=== PATIENT | male | born 1945 | race Caucasian/White ===

== ENCOUNTER → 2018-07-08 | Outpatient (REF) | payer MEDICARE, OTHER ==
[2018-07-11 00:07] LABS: Lyme Disease IgG/IgM Antibodie <0.91 ISR (0.00-0.90); Lyme Disease IgM Ab Quantitati <0.80 index (0.00-0.79)
== END ==
LOC: M LABDRAW1 15:31
DX: M17.11 Unilateral primary osteoarthritis, right knee (principal)
CPT/HCPCS: 36415

== ENCOUNTER → 2019-04-29 | Outpatient (CLI) | payer MEDICARE, OTHER ==
[2019-04-29 08:46] LABS: HEMATOCRIT 43.2 % (42.0-52.0); HEMOGLOBIN 14.6 g/dl (13.5-17.5); MEAN CORPUSCULAR HEMOGLOBIN 32.1 pg (27.0-33.0); MEAN CORPUSCULAR HGB CONC 33.8 g/dl (32.0-36.5); MEAN CORPUSCULAR VOLUME 94.9 fl (80.0-96.0); PLATELET COUNT, AUTOMATED 220 10^3/uL (150-450); RED BLOOD COUNT 4.55 10^6/uL (4.30-6.10); WHITE BLOOD COUNT 9.4 10^3/uL (4.0-10.0)
[2019-04-29 09:07] LABS: ERYTHROCYTE SEDIMENTATION RATE 6 mm/hr (0-20)
[2019-04-29 09:09] LABS: APPEARANCE, URINE CLEAR (CLEAR); BACTERIA, URINE AUTO NEGATIVE (NEGATIVE); BILIRUBIN, URINE AUTO NEGATIVE (NEGATIVE); BLOOD, URINE BLOOD NEGATIVE (NEGATIVE); COLOR, URINE YELLOW (YELLOW); GLUCOSE, URINE (UA) AUTO NEGATIVE (NEGATIVE); KETONE, URINE AUTO NEGATIVE (NEGATIVE); LEUKOCYTE ESTERASE, URINE AUTO NEGATIVE (NEGATIVE); MUCUS, URINE SMALL (NEGATIVE); NITRITE, URINE AUTO NEGATIVE (NEGATIVE); PROTEIN, URINE AUTO NEGATIVE (NEGATIVE); RBC, URINE AUTO 4 /HPF (0-3); SQUAMOUS EPITHELIAL CELL UR AU 0 /HPF (0-6); UROBILINOGEN, URINE AUTO 0.2 mg/dL (0.0-2.0); WBC, URINE AUTO 0 /HPF (0-3)
[2019-04-29 09:12] LABS: ALBUMIN 3.6 GM/DL (3.2-5.2); ALT/SGPT 25 U/L (12-78); BILIRUBIN,TOTAL 0.4 MG/DL (0.2-1.0); BLOOD UREA NITROGEN 30 MG/DL (7-18); CALCIUM LEVEL 9.2 MG/DL (8.8-10.2); CARBON DIOXIDE LEVEL 25 MEQ/L (21-32); CHLORIDE LEVEL 107 MEQ/L (98-107); CREATININE FOR GFR 1.21 MG/DL (0.70-1.30); GLOMERULAR FILTRATION RATE > 60.0 (>42); GLUCOSE, FASTING 110 MG/DL (70-100); POTASSIUM SERUM 4.2 MEQ/L (3.5-5.1); SODIUM LEVEL 140 MEQ/L (136-145); TOTAL PROTEIN 6.9 GM/DL (6.4-8.2)
--- NOTE | 2019-04-29 09:12 | REP ---
Clinical: Preoperative assessment . Comparison: 07/24/2011 . Technique: PA and lateral. Findings: The cardiac silhouette is normal. Tortuous ectatic thoracic aorta is again identified and aneurysmal dilatation cannot definitively be excluded. The lung campbell are clear and without acute consolidation, effusion, or pneumothorax. The skeletal structures are intact and normal. Impression: 1. Tortuous ectatic thoracic aorta. Aneurysm cannot be excluded. 2. Lung campbell are clear. Electronically Signed by Dom Hooker MD 04/29/2019 09:03 A
[2019-04-29 09:28] LABS: INR 1.08; PROTHROMBIN TIME 13.8 SECONDS (11.8-14.0)
--- NOTE | 2019-04-30 07:19 | ECGEPIP ---
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
== END ==
LOC: M LAB 08:05
PROVIDERS: ATTEND Orthopaedic Surgery
DX: Z01.818 Encounter for other preprocedural examination (principal); M16.11 Unilateral primary osteoarthritis, right hip; I77.819 Aortic ectasia, unspecified site; K92.9 Disease of digestive system, unspecified

== ENCOUNTER 2019-06-18 09:59 | Inpatient (IN) | payer MEDICARE, OTHER ==
[~2019-06-18] VITALS: Ht 172.7 cm; Wt 74.9 kg
[2019-06-18] VITALS (8 sets, daily range): BP systolic 110–148; BP diastolic 57–93
[~2019-06-18 09:59] MED LIST: AMLO5TAB6 PO; ASPI-255 PO; ASPI81TA85 PO; DICL75TA PO; ESOM0.1C PO; GABA-843 PO; LIDOCAINE 1% MDV 20ML VIAL SQ PRN; LR 1,000 ML IV ONE; OMEP40CA2 PO; PANT20TA2 PO; PLAV1TAB2 PO; PROS5TAB PO; VALS1TAB66 PO
[2019-06-18] MEDS ORDERED: PROPOFOL 200 MG/20 ML VIAL As Ordered ONE (11:37)
[2019-06-18] MEDS ORDERED: SUGAMMADEX SODIUM 500 MG/5 ML VIAL (BRIDION) As Ordered ONE (11:37)
[2019-06-18] MEDS ORDERED: HEPARIN SOD (PORCINE) 5000 UNITS/ML VIAL As Ordered ONE ×2 (11:37→12:48)
[2019-06-18] MEDS ORDERED: ONDANSETRON 4MG/2ML VIAL (J2405) As Ordered ONE (11:37)
[2019-06-18] MEDS ORDERED: LIDOCAINE 2% INJ 100 MG/5 ML SDV (FOR ANES.) As Ordered ONE (11:37)
[2019-06-18] MEDS ORDERED: ROCURONIUM BROMIDE 50 MG/5 ML VIAL As Ordered ONE (11:37)
[2019-06-18] MEDS ORDERED: dexameTHASONE 4 MG/ML 1ML VIAL (J1100) As Ordered ONE (11:37)
[2019-06-18] MEDS ORDERED: fentaNYL 250 MCG/5 ML INJECTION (J3010) As Ordered ONE (11:38)
[2019-06-18] MEDS ORDERED: MIDAZOLAM INJ 2 MG/2 ML VIAL (J2250) As Ordered ONE (11:39)
--- NOTE | 2019-06-18 12:19 | HPEPDOC ---
[facility] Medical History & Physical Date of Admission Jun 18, 2019 Date of Service: Jun 18, 2019 History and Physical Vascular Surgery Dr Cisneros HPI: 74year oldM with Carotid stenosis scheduled for elective Lt CEA as per Dr Cisneros 06/18/19. Please also refer to Pre operative clearance as per Dr Taylor placed on the chart. No acute medical complaints today. Denies any fevers, chills, weakness, fatigue, Headache, Chest Pain, Shortness of breath, cough, palpitations, abdominal pain, N/V/D or changes in bowel or bladder habits. PMHx: HTN GERD BPH Carotis vascular disease tobacco use chronic hip pain. PSHX: tonsillectomy Rt arm surgery Rotator cuff repair Lt foot neuroma Lt hernia repair Rt knee meniscus repair. SOCHX: Tobacco use: 1/2 ppd ETOH: denies FAMHX: DM ROS: As noted in HPI, otherwise 11pt ROS of systems reviewed and unremarkable. PE: GEN: 74yoM, appears stated age. Alert and oriented x 3. HEENT: Normocephalic, atraumatic. Moist mucous membranes. CHEST: Regular rate and rhythm, +S1, +S2 LUNGS: Clear to auscultation bilaterally. No wheezes, rales, or rhonchi. ABD: Round, soft, non-tender, non-distended. EXT: No lower extremity edema appreciated. SKIN: [place], dry, warm. No rashes. NEURO: Alert and oriented x 3. Cranial nerves III-XII are intact. No focal deficits appreciated. A&P: 1. Carotid vascular disease/Lt CEA planned as per Dr Cisneros 06/18/19. Pt on ASA/Plavix as outpt. 2. HTN. Valsartan on hold for now. BP 133/60. 3. GERD. Protonix. 4. BPH. Proscar. 5. Chronic hip pain. gabapentin. Vital Signs Vital Signs Date Time Temp Pulse Resp B/P (MAP) Pulse Ox O2 Delivery O2 Flow Rate FiO2 06/18/19 10:37 96.7 68 20 133/60 (84) 97 Laboratory Data Labs 24H Item Value Date Time White Blood Count 9.4 10^3/uL 04/29/19 0822 Red Blood Count 4.55 10^6/uL 04/29/19 0822 Hemoglobin 14.6 g/dl 7/2/19 0822 Hematocrit 43.2 % 04/29/1922 Mean Corpuscular Volume 94.9 fl 04/29/19 08 Mean Corpuscular Hemoglobin 32.1 pg 04/29/19821 Mean Corpuscular Hemoglobin Concent 33.8 g/dl 04/29/19 08 Red Cell Distribution Width 13.3 % 04/29/19 08 Platelet Count 220 10^3/uL 04/29/19 08 Sodium Level 140 MEQ/L 04/29/19 0822 Potassium Level 4.2 MEQ/L 04/29/19 0822 Chloride Level 107 MEQ/L 04/29/19 0822 Carbon Dioxide Level 25 MEQ/L 04/29/19 08 Anion Gap 8 MEQ/L 04/29/19 08 Blood Urea Nitrogen 30 MG/DL H 04/29/19 0822 Creatinine 1.21 MG/DL 04/29/19 08 Glomerular Filtration Rate > 60.0 04/29/19 08 Fasting Glucose 110 MG/DL H 04/29/19 0822 Prothrombin Time 13.8 SECONDS 04/29/19 0822 Prothromb Time International Ratio 1.08 04/29/19 08 Home Medications Scheduled Amlodipine Besylate (Amlodipine Besylate) 5 Mg Tablet, 5 MG PO DAILY Aspirin (Aspir 81) 81 Mg Tablet.dr, 81 MG PO DAILY Clopidogrel Bisulfate (Plavix) 75 Mg Tablet, 75 MG PO DAILY Diclofenac Sodium (Diclofenac Sodium) 75 Mg Tablet.dr, 75 MG PO BID Finasteride (Proscar) 5 Mg Tablet, 5 MG PO QAM Gabapentin (Gabapentin) 300 Mg Capsule, 300 MG PO Q8H Pantoprazole Sodium (Pantoprazole Sodium) 20 Mg Tablet.dr, 20 MG PO DAILY Valsartan (Valsartan) 80 Mg Tablet, 80 MG PO DAILY Allergies Coded Allergies: No Known Allergies (Unverified , 06/18/19) A-FIB/CHADSVASC A-FIB History Current/History of A-Fib/PAF?: No Attending Note Attending Note VASCULAR SURGICAL ATTENDING NOTE: Dr. Karolyn Cisneros M.D. The patient was seen on 06/18/19 at 11:15. ASSESSMENT: Patient is a 74-year-old male with a history of TIAs and severe right hip degenerative joint disease who was in the process of being set up to undergo a right hip replacement when he had a TIA and was found to have a high- grade stenosis in his left internal carotid artery. The patient also has an intracerebral aneurysm. Patient was evaluated and the recommendation was to undergo a left carotid endarterectomy with patch angioplasty with a Xenosure biologic patch and usage of a shunt. Patient will also require close monitoring of his intracerebral aneurysm. PLAN: Patient will undergo a left carotid artery endarterectomy with p patch angioplasty with Xenosure biologic patch and shunt usage. The procedure was explained and described to the patient and his family in detail including drawing of pictures demonstrating the pertinent anatomy and parts of the procedure. Risks benefits and alternative treatment options were discussed with the patient. Benefits included but were not limited to removal of carotid artery plaque and reduction in risk of cerebrovascular accident. Alternative treatment options included but were not limited to no intervention with continued conservative management. Risks included but were not limited to infection, bleeding, renal failure requiring hemodialysis, possible need for further open surgical intervention, hematoma formation requiring evacuation, scarring, bruising, possible need for transfusion of blood products, complicatio n reaction from the prepping and draping materials, hypoglossal nerve injury or neurapraxia, vagus nerve injury or neurapraxia, glossopharyngeal nerve injury or neurapraxia, marginal mandibular nerve injury or neurapraxia, recurrent laryngeal nerve injury or neurapraxia, cerebrovascular accident, myocardial infarction, pulmonary embolus, deep venous thrombosis, loss of limb, loss of life, poor satisfaction and poor outcome. Risks of not performing the procedure included but were not limited to cerebrovascular accident and . All of the patient's questions were answered. Patient voices understanding of these risks, benefits and alternative treatment options. Patient voices acceptance of these associated risks, benefits and alternative treatment options and consents to proceed with carotid endarterectomy. No promises or guarantees were made to the patient regarding the results or outcome of the procedure. The patient's , sister and [id number] were also present and all of their questions were answ ered. Patient signed the consent in the preoperative holding area with his , sister and [id number] present. Jeanette Greer was the attending vascular surgeon for this patient encounter. The patient was seen, examined, interviewed and evaluated independently by Dr. Shawna Cisneros M.D. was fully available during the consultation evaluation. All aspects of the patient interview, examination, medical decision making process, and medical care plan development were reviewed and approved by Dr. Shawna Cisneros M.D. is aware and concurs with the plan as stated in the body of this note and will attest to such by his/her cosignature. Coco Marcial Jun 18, 2019 12:19 Arnold Cisneros MD Jun 18, 2019 12:54
[2019-06-18] MEDS ORDERED: THROMBIN SOLN 20,000 UNITS KIT As Ordered ONE (12:47)
[2019-06-18] MEDS ORDERED: BUPIVACAINE HCL 0.5% 30 ML VIAL As Ordered ONE (12:48)
[2019-06-18] MEDS ORDERED: LIDOCAINE 1% SDV INJ 30 ML VIAL As Ordered ONE (12:48)
[2019-06-18] MEDS ORDERED: ceFAZolin 2 GM/D5W 50 ML IV BAG (J0690 PER 500MG) As Ordered ONE (13:34)
[2019-06-18] MEDS ORDERED: ACETAMINOPHEN TAB 650MG DOSE (2X325MG) PO PRN (15:30)
[2019-06-18] MEDS ORDERED: MORPHINE 4 MG/ML 1ML VIAL/SYRINGE (J2270) IV PRN (15:30)
[2019-06-18] MEDS ORDERED: MOM 30ML SUSPENSION UDC PO PRN (15:30)
[2019-06-18] MEDS ORDERED: BISACODYL 10 MG SUPP PR PRN (15:30)
[2019-06-18] MEDS ORDERED: NORCO, ANEXSIA 5/325MG TABLET (HYDROcodone/ACETAMINOPHEN) As Ordered ONE (15:39)
[2019-06-18] MEDS: NORCO, ANEXSIA 5/325MG TABLET (HYDROcodone/ACETAMINOPHEN) PO PRN ×2 (15:40→16:15)
[2019-06-18] MEDS ORDERED: fentaNYL 100 MCG/2 ML INJECTION (J3010) IV PRN (15:45)
[2019-06-18] MEDS ORDERED: LR 1,000 ML IV SCH (15:45)
[2019-06-18] MEDS ORDERED: ONDANSETRON 4MG/2ML VIAL (J2405) IV PRN (15:45)
[2019-06-18] MEDS: GABAPENTIN 300 MG CAP PO SCH ×2 (17:54→22:08)
--- NOTE | 2019-06-18 19:19 | ROOPDOC ---
[facility] Report Of Operation Report of Operation DATE OF PROCEDURE: 06/18/2019 PREOPERATIVE DIAGNOSES: Left carotid artery stenosis, TIA, intracerebral aneurysm. POSTOPERATIVE DIAGNOSES: Left carotid artery stenosis, TIA, intracerebral aneurysm. PROCEDURE: Left carotid endarterectomy with usage of a shunt and patch angioplasty with Xenosure biologic patch. SURGEON: Dr. Karolyn Cisneros M.D. NEIGHBORHOOD WORKER: None INDICATION: Patient is a 74-year-old male with multiple episodes of TIA who was evaluated and found to have greater than 95% stenosis in his left internal carotid artery. Patient also has a history of an intracerebral aneurysm. Patient was evaluated due to being symptomatic recommendation was to undergo a left carotid endarterectomy with patch angioplasty with Xenosure biologic patch and usage of a shunt. The procedure was explained and described to the patient and his daughter in detail including drawing of pictures demonstrating the pertinent anatomy and parts of the procedure. Risks benefits and alternative treatment options were discussed with the patient. Benefits included but were not limited to removal of carotid artery plaque and reduction in risk of cerebrovascular accident. Alternative treatment options included but were not limited to no intervention with continued conservative management. Risks included but were not limited to infection, bleeding, renal failure requiring hemodialysis, possible need for further open surgical intervention, hematoma formation requiring evacuation, scarring, bruising, possible need for transfusion of blood products, complication reaction from the prepping and draping materials, hypoglossal nerve injury or neurapraxia, vagus nerve injury or neurapraxia, glossopharyngeal nerve injury or neurapraxia, marginal mandibular nerve injury or neurapraxia, recurrent laryngeal nerve injury or neurapraxia, cerebrovascular accident, myocardial infarction, pulmonary embolus, deep venous thrombosis, loss of limb, loss of life, poor satisfaction and poor outcome. Risks of not performing the procedure included but were not limited to cerebrovascular accident and . All of the patient's questions were answered. Patient voices understanding of these risks, benefits and alternative treatment options. Patient voices acceptance of these associated risks, benefits and alternative treatment options and consents to proceed with carotid endarterectomy. No promises or guarantees were made to the patient regarding the results or outcome of the procedure. ANESTHESIA: Gen. endotracheal. ESTIMATED BLOOD LOSS: 200 mL. IV FLUIDS: 600 mL. HEPARIN: 7000 units PROTAMINE: 50 mg COMPLICATIONS: None. DRAINS: #10 Marcello-House drain. SPECIMENS: Left carotid plaque PROCEDURE: Patient was taken to the operating room, placed supine on the operating room table and the patient was prepped and draped in a standard surgical fashion. A surgical time out confirming the correct patient, procedure and laterality was then performed by myself and the team members within the operating room. The location of the bifurcation of the common carotid, external carotid and internal carotid arteries was identified using palpation and ultrasound and this was marked on the skin. An incision was then made along the anterior border of the left sternocleidomastoid muscle using a scalpel at the previously marked location of the bifurcation of the common carotid, external carotid and internal carotid arteries. The dissection was carried down through the skin, subcutaneous tissue and platysma using Bovie electrocautery. The sternocleidomastoid muscle was then dissected off of the carotid sheath using both sharp dissection and Bovie electrocautery. The sternocleidomastoid muscle was retracted laterally exposing the carotid sheath. The carotid sheath was then opened exposing the common carotid artery, internal jugular vein and vagus nerve. The internal jugular vein was dissected sharply and retracted laterally. The common carotid artery was then sharply dissected free of surrounding tissue with Metzenbaum scissors and encircled with a vessel loop. The superior thyroid and external carotid arteries were then sharply dissected free and encircled with vessel loops. The patient was given 7000 units of heparin for systemic anti-coagulation after which the internal carotid artery was sharply dissected free after the common carotid artery, external carotid artery and superior thyroid arteries were controlled using the vessel loops. The internal carotid artery was then clamped using a profunda clamp. An arteriotomy was then made in the common carotid artery using an 11 blade scalpel and this was then elongated from the common carotid artery into the internal carotid artery using pot scissors. There was a 95% stenosis at the junction of the common carotid, external carotid and internal carotid arteries. The internal carotid artery was then retrograde flushed with good back bleeding noted after which a shunt was inserted into the internal carotid artery and flushed retrograde with the internal carotid artery portion of the shunt being clamped. The common carotid artery was then antegrade flushed and the shunt was then inserted into the common carotid artery and the common carotid artery portion of the shunt flushed through the side port. Flow was then established through and confirmed through the shunt using Doppler ultrasound evaluation. The endarterectomy of the common and internal carotid arteries was then completed including eversion endarterectomy of the superior thyroid and external carotid artery. The arteriotomy was irrigated with heparinized saline and then closed using Xenosure biologic patch and 6-0 Prolene suture in running continuous fashion. The shunt was removed prior to completing the arteriotomy closure. The internal carotid artery portion of the shunt was removed firstly and the internal carotid artery was retrograde flushed and then clamped with a profunda clamp. The common carotid artery shunt portion was removed and the common carotid artery was flushed antegrade. The superior thyroid and external carotid arteries were retrograde flushed prior to completing the closure of the arteriotomy. The arteriotomy was then flushed with heparinized saline. The arteriotomy closure was completed after which flow was established from the common carotid artery into the superior thyroid artery and external carotid artery while the internal carotid artery remained clamped. Flow was then established into the internal carotid artery. Flow was evaluated with Doppler ultrasound which showed good flow into the internal carotid artery, external carotid artery and superior thyroid arteries. Hemostasis was then obtained using thrombin and Gelfoam. Once hemostasis was obtained a #10 Marcello-House drain was placed in the wound. The platysma was then closed using 2-0 Vicryl suture in interrupted fashion. The skin was then closed using 3-0 Monocryl in a running subcuticular fashion. Steri-Strips and dressings were applied. All instruments sponge and needle counts were correct at the end of the case. There were no complications. Dr. Cisneros was present for and directed the entire case. Patient was transferred to the recovery room awake, alert, extubated and fully neurologically intact with no focal deficits noted. The results of the procedure were explained and described to the patient in the recovery room. The results of the procedure were explained and described to the patient's family in the surgical waiting room postoperatively. All the patient's and his family's questions were answered. Arnold Cisneros MD Jun 18, 2019 19:19
[2019-06-18] MEDS: SENOKOT S TAB PO SCH (21:00)
[2019-06-18] MEDS: DOCUSATE SODIUM 100 MG CAP PO SCH (21:00)
[2019-06-19] VITALS (8 sets, daily range): BP systolic 107–158; BP diastolic 57–78
[2019-06-19] MEDS: GABAPENTIN 300 MG CAP PO SCH (05:57)
[2019-06-19] MEDS: DOCUSATE SODIUM 100 MG CAP PO SCH (08:17)
[2019-06-19] MEDS: SENOKOT S TAB PO SCH (08:18)
[2019-06-19] MEDS ORDERED: PANTOPRAZOLE 20 MG TAB PO SCH (09:00)
[2019-06-19] MEDS ORDERED: VALSARTAN 80 MG TAB (DIOVAN) PO SCH (09:00)
[2019-06-19] MEDS ORDERED: FINASTERIDE 5 MG TAB PO SCH (09:00)
[2019-06-19] MEDS ORDERED: amLODIPine 5 MG TAB PO SCH (09:00)
[2019-06-19] MEDS ORDERED: CLOPIDOGREL 75 MG TAB PO SCH (09:00)
[2019-06-19] MEDS ORDERED: ASPIRIN 81 MG ENTERIC TAB PO SCH (09:00)
--- NOTE | 2019-06-19 11:34 | DS.PDOC ---
Discharge Summary General Date of Admission Jun 18, 2019 at 09:59 Date of Discharge 06/19/19 Discharge Summary PROCEDURES PERFORMED DURING STAY: Left carotid endarterectomy with usage of a shunt and patch angioplasty with Xenosure biologic patch. Dr Cisneros 06/18/19. ADMITTING DIAGNOSES: carotid vascular disease intracerebral aneurysm. HTN GERD BPH Carotis vascular disease tobacco use chronic hip pain. DISCHARGE DIAGNOSES: carotid vascular disease. S/P Lt CEA. intracerebral aneurysm. HTN GERD BPH Carotis vascular disease tobacco use chronic hip pain. COMPLICATIONS/CHIEF COMPLAINT: carotid stenosis. HISTORY OF PRESENT ILLNESS: 74year oldM with Carotid stenosis scheduled for elective Lt CEA as per Dr Cisneros 06/18/19. HOSPITAL COURSE: 74year oldM with Carotid stenosis scheduled for elective Lt CEA as per Dr Cisneros 06/18/19. The pt tolerated the procedure well. Pt is awake this AM. Tolerating PO. Has been OOB. VARINDER drain removed as per Dr Cisneros. Dry dressing and steri strips in place. plan for D/C today after lunch. DISCHARGE MEDICATIONS: Please see below. ALLERGIES: Please see below. PHYSICAL EXAMINATION ON DISCHARGE: VITAL SIGNS: Please see below. GEN: 74yoM. Alert and oriented x 3. HEENT: Normocephalic, atraumatic. Moist mucous membranes. CHEST: Regular rate and rhythm, +S1, +S2. VARINDER drain removed. No bleeding noted. Dry dressing in place. LUNGS: Clear to auscultation bilaterally. ABD: Round, soft, non-tender, non-distended. EXT: No lower extremity edema appreciated. SKIN: [place], dry, warm. No rashes. NEURO: Alert and oriented x 3. No focal deficits appreciated. LABORATORY DATA: Please see below. ACTIVITY: As tolerated. light activity. No heavy lifting. DIET: As tolerated DISPOSITION: D/C home DISCHARGE INSTRUCTIONS: 1. dry dressing daily as needed. 2. no lifting, light activity. 3. FU with Dr Cisneros's office 1 week. ITEMS TO FOLLOWUP ON ON OUTPATIENT: 1. Pt to FU with [facility] [place] re intracerebral aneurysm. Pt states already has appt arranged. DISCHARGE CONDITION: Stable. TIME SPENT ON DISCHARGE: Greater than 30 minutes. Vital Signs/I&Os Vital Signs Date Time Temp Pulse Resp B/P (MAP) Pulse Ox O2 Delivery O2 Flow Rate FiO2 06/19/19 10:18 89 16 111/66 (82) 96 06/19/19 07:38 98.2 06/18/19 16:17 2 I&O- Last 24 Hours up to 6 AM 06/19/19 05:59 Intake Total 2040 ml Output Total 1030 ml Balance 1010 ml Laboratory Data Labs 24H Laboratory Tests 2 06/18/19 13:32: POC pH (Misc Panel) 7.417, POC Base Excess (Misc Panel) 0.0, POC Saturated Percent O2 (Misc) 100H, POC pO2 (Misc Panel) 193.0H, POC pCO2 (Misc Panel) 38.1, POC HCO3 (Misc Panel) 24.6, POC Glucose (Misc Panel) 100, POC Sodium (Misc Panel) 138, POC Potassium (Misc Panel) 4.0, POC Total CO2 (Misc Panel) 26.0, POC Ionized Calcium (Misc Panel) 5.1, POC Hemoglobin (Calculated)(Misc) 11.2L, POC Hematocrit (Misc Panel) 33.0L Discharge Medications Scheduled Amlodipine Besylate (Amlodipine Besylate) 5 Mg Tablet, 5 MG PO DAILY, (Reported) Aspirin (Aspir 81) 81 Mg Tablet.dr, 81 MG PO DAILY, (Reported) Clopidogrel Bisulfate (Plavix) 75 Mg Tablet, 75 MG PO DAILY, (Reported) Finasteride (Proscar) 5 Mg Tablet, 5 MG PO QAM, (Reported) Gabapentin (Gabapentin) 300 Mg Capsule, 300 MG PO Q8H, (Reported) Pantoprazole Sodium (Pantoprazole Sodium) 20 Mg Tablet.dr, 20 MG PO DAILY, (Reported) Valsartan (Valsartan) 80 Mg Tablet, 80 MG PO DAILY, (Reported) Allergies Coded Allergies: No Known Allergies (Unverified , 06/18/19) Coco Marcial Jun 19, 2019 11:34
== END 2019-06-19 13:25 | disposition home or self-care (01) | DRG 39 ==
LOC: M OR 09:59 → M ICU 16:56
PROVIDERS: ADMIT Surgery Vascular Surgery; ATTEND Surgery Vascular Surgery
PROC: 03UJ0KZ Supplement Left Common Carotid Artery with Nonautologous Tissue Substitute, Open Approach (ICD-10-PCS; 2019-06-18)
PROC: 037 Upper Arteries, Dilation (ICD-10-PCS; 2019-06-18)
PROC: 03CL0Z6 (ICD-10-PCS; principal; 2019-06-18 12:00)
DX: I65.22 Occlusion and stenosis of left carotid artery (principal); I10 Essential (primary) hypertension; K21.9 Gastro-esophageal reflux disease without esophagitis; N40.0 Benign prostatic hyperplasia without lower urinary tract symptoms; I67.1 Cerebral aneurysm, nonruptured; F17.200 Nicotine dependence, unspecified, uncomplicated; M25.559 Pain in unspecified hip; Z79.82 Long term (current) use of aspirin; Z79.899 Other long term (current) drug therapy

== ENCOUNTER → 2019-07-02 | Outpatient (CLI) | payer MEDICARE, OTHER ==
[~2019-07-02] MED LIST changes: -LIDOCAINE 1% MDV 20ML VIAL SQ PRN; -LR 1,000 ML IV ONE; -OMEP40CA2 PO; +OMEP40CA97 PO; +PERC5TAB12 PO
--- NOTE | 2019-07-02 10:09 | REP ---
Clinical: Status post recent left endarterectomy. Technique: Garibay scale and color Doppler evaluation using linear high frequency transducer Findings: Two-dimensional garibay scale and color images demonstrate moderate amounts of mixed atheromatous plaquing along the right common carotid artery through the bulb and proximal internal carotid artery as well as along the left common carotid artery and proximal portions of the left internal and external carotid arteries. The patient is known to be status post left endarterectomy and there is a hematoma centered at the level of the carotid bulb and measuring 1.0 x 2.5 cm diameter x 4.8 cm craniocaudal length. Color Doppler interrogation demonstrates arterial wave patterns and normal velocities with elements of spectral broadening. Normal flow direction is appreciated in the bilateral vertebral arteries. RIGHT (cm/s) LEFT (cm/s) ICA peak systolic velocity 63.7 66.5 ICA diastolic velocity 24.3 19.2 ECA peak systolic velocity 104.7 51.0 CCA peak systolic velocity 57.2 67.2 ICA/CCA ratio 1.11 0.99 Impression: 1. The patient is status post left endarterectomy and a presumed postsurgical hematoma is identified adjacent to the left carotid artery described above. 2. Mixed atheromatous plaquing involving the right carotid artery falls within the less than 50% range of narrowing based on set standards. Electronically Signed by Dom Hooker MD 07/02/2019 10:01 A
== END ==
LOC: M RAD 08:15
PROVIDERS: ATTEND Surgery Vascular Surgery
DX: I65.21 Occlusion and stenosis of right carotid artery (principal); I97.638 Postprocedural hematoma of a circulatory system organ or structure following other circulatory system procedure

== ENCOUNTER → 2019-08-08 | Outpatient (CLI) | payer MEDICARE, OTHER ==
[~2019-08-08] MED LIST changes: -PERC5TAB12 PO
[2019-08-08 10:58] LABS: HEMATOCRIT 41.1 % (42.0-52.0); HEMOGLOBIN 13.4 g/dl (13.5-17.5); MEAN CORPUSCULAR HEMOGLOBIN 30.8 pg (27.0-33.0); MEAN CORPUSCULAR HGB CONC 32.6 g/dl (32.0-36.5); MEAN CORPUSCULAR VOLUME 94.5 fl (80.0-96.0); PLATELET COUNT, AUTOMATED 228 10^3/uL (150-450); RED BLOOD COUNT 4.35 10^6/uL (4.30-6.10); WHITE BLOOD COUNT 8.9 10^3/uL (4.0-10.0)
[2019-08-08 11:08] LABS: INR 1.07; PROTHROMBIN TIME 13.6 SECONDS (11.8-14.0)
[2019-08-08 11:17] LABS: ALBUMIN 3.8 GM/DL (3.2-5.2); ALT/SGPT 23 U/L (12-78); BILIRUBIN,TOTAL 0.4 MG/DL (0.2-1.0); BLOOD UREA NITROGEN 33 MG/DL (7-18); CALCIUM LEVEL 9.6 MG/DL (8.8-10.2); CARBON DIOXIDE LEVEL 26 MEQ/L (21-32); CHLORIDE LEVEL 108 MEQ/L (98-107); CREATININE FOR GFR 0.94 MG/DL (0.70-1.30); GLOMERULAR FILTRATION RATE > 60.0 (>42); GLUCOSE, FASTING 91 MG/DL (70-100); POTASSIUM SERUM 4.3 MEQ/L (3.5-5.1); SODIUM LEVEL 140 MEQ/L (136-145); TOTAL PROTEIN 7.5 GM/DL (6.4-8.2)
[2019-08-08 11:22] LABS: ERYTHROCYTE SEDIMENTATION RATE 13 mm/hr (0-20)
--- NOTE | 2019-08-08 12:42 | REP ---
PA and lateral chest: Comparison is 04/29/2019. There is a faintly visible nodular density projected over the right lung inferiorly and over the left lung inferiorly, likely nipple artifacts. The lung campbell otherwise clear. Cardiac size is normal. The chemo and mediastinum are unremarkable except for extreme tortuosity of the thoracic aorta, unchanged. Skeletal structures are unremarkable. Impression: Probable nipple artifacts in the lower lung zones bilaterally. Tortuous descending thoracic aorta. Otherwise, negative PA and lateral chest. Electronically Signed by Jose Luis Key MD 08/08/2019 12:35 P
--- NOTE | 2019-08-09 10:04 | ECGEPIP ---
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
== END ==
LOC: M LAB 10:10
PROVIDERS: ATTEND Orthopaedic Surgery
DX: M16.11 Unilateral primary osteoarthritis, right hip (principal); Z79.899 Other long term (current) drug therapy; Z79.82 Long term (current) use of aspirin

== ENCOUNTER 2019-08-29 05:37 | Inpatient (IN) | payer MEDICARE, OTHER ==
--- NOTE | 2019-08-21 13:41 | HPE ---
DATE OF ADMISSION: 08/29/2019 CHIEF COMPLAINT: Right hip pain. HISTORY OF PRESENT ILLNESS: Mr. Howe is a pleasant 74-year-old male with progressively worsening right hip pain and stiffness. He has failed to improve with conservative treatment. He has elected for surgery for his continued symptoms. He has pain with weightbearing activities and his activities of daily living. X-rays of his hip are notable for advanced osteoarthritis of the right hip joint. He has consented for a right total hip arthroplasty by Dr. Chano Garibay. Medical optimization was performed by Kaleigh Pearce. ALLERGIES: No known allergies. CURRENT MEDICATIONS: - gabapentin 300 mg three times a day - valsartan 80 mg once a day - amlodipine besylate 5 mg at bedtime - Proscar 5 mg at bedtime - diclofenac sodium 75 mg - pantoprazole sodium 40 mg - clopidogrel bisulfate 75 mg - low dose aspirin. PAST MEDICAL HISTORY: Includes: Hypertension. Hyperlipidemia. Gastroesophageal reflux disease. Benign prostatic hypertrophy (BPH). PAST SURGICAL HISTORY: Includes: Left inguinal hernia repair. Right inguinal hernia repair. Tonsillectomy. Right shoulder rotator cuff repair. Neuroma removal left foot. Meniscectomy right knee. Cyst removed from the left shoulder. Calcium deposits removed from his left testicle. SOCIAL HISTORY: This gentleman is retired. Smokes a pack a day. Occasionally drinks alcohol. FAMILY HISTORY: Noncontributory. REVIEW OF SYSTEMS: This patient denies chest pain, heart palpitations, cough, wheezing, difficulty breathing and shortness of breath. He denies abdominal pain, nausea, vomiting, diarrhea or constipation. He denies recent upper respiratory infection or urinary tract infection symptoms. He does complain of persistent pain in the right hip and pain with weightbearing activities in his right hip. PHYSICAL EXAMINATION: GENERAL: He is well-nourished, well-developed in no acute distress, alert male. He ambulates with a significant limp favoring the right lower extremity. He is using a cane. VITAL SIGNS: He is 68 inches tall, weighs 175 pounds with a temperature of 98.9, blood pressure of 135/62, pulse of 81, respirations of 14. NECK: Was supple without adenopathy or jugular venous distension. LUNGS: Were clear to auscultation without rales or wheeze. HEART: Regular rate and rhythm. ABDOMEN: Bowel sounds were present. EXTREMITIES: Examination of the hip revealed intact skin. He had decreased range of motion due to pain and stiffness. The limb is neurovascularly intact. LABORATORY DATA: EKG showed sinus rhythm with first-degree AV block at 63 beats per minute. Chest x-ray showed no acute cardiopulmonary disease processes. ProTime 13.6, INR 1.07, glucose 91, BUN 33, creatinine 0.94, sodium 140, potassium 4.3. CBC showed hemoglobin of 13.4, hematocrit of 41.1, otherwise within normal limits, with a sed rate of 13. IMPRESSION: Symptomatic osteoarthritis of the right hip joint. PLAN: Consented for a right total hip arthroplasty by Dr. Chano Garibay.
[2019-08-29] VITALS (10 sets, daily range): BP systolic 102–148; BP diastolic 55–84; O2SAT 96
[~2019-08-29] VITALS: Ht 172.7 cm; Wt 76.3 kg
[2019-08-29] MEDS ORDERED: ceFAZolin 2 GM/D5W 50 ML IV BAG (J0690 PER 500MG) As Ordered ONE (06:33)
[2019-08-29] MEDS ORDERED: PERCOCET 5MG/325MG TAB PO ONE (07:00)
[2019-08-29] MEDS ORDERED: LR 1,000 ML IV ONE (07:00)
[2019-08-29] MEDS ORDERED: ceFAZolin SOD 2 GM in IV 1 EA IV ONE (07:00)
[2019-08-29] MEDS ORDERED: PREGABALIN 50 MG CAP (LYRICA) PO ONE (07:00)
[2019-08-29] MEDS ORDERED: CelecoXIB 400 MG CAP PO ONE (07:00)
[2019-08-29] MEDS ORDERED: BUPIVACAINE/EPIN 0.25% 30 ML VIAL As Ordered ONE (07:04)
[2019-08-29] MEDS ORDERED: ceFAZolin 1GM INJ (J0690 PER 500MG) As Ordered ONE (07:05)
[2019-08-29] MEDS ORDERED: BUPIVACAINE LIPOSOME/PF 1.3% 20ML VIAL (13.3MG/ML)(EXPAREL)(C9290 PER1MG) As Ordered ONE (07:05)
[2019-08-29] MEDS ORDERED: BUPIVACAINE HCL 0.5% 10 ML VIAL As Ordered ONE (07:05)
[2019-08-29] MEDS ORDERED: TRANEXAMIC ACID 100 MG/ML 10ML VIAL As Ordered ONE (07:05)
[2019-08-29] MEDS ORDERED: EPINEPHrine INJ 1 MG/ML 1ML AMP As Ordered ONE (07:06)
[2019-08-29] MEDS ORDERED: PROPOFOL 200 MG/20 ML VIAL As Ordered ONE (07:18)
[2019-08-29] MEDS ORDERED: fentaNYL 100 MCG/2 ML INJECTION (J3010) As Ordered ONE ×2 (07:18→10:31)
[2019-08-29] MEDS ORDERED: MIDAZOLAM INJ 2 MG/2 ML VIAL (J2250) As Ordered ONE (07:18)
[2019-08-29] MEDS ORDERED: LIDOCAINE 2% INJ 100 MG/5 ML SDV (FOR ANES.) As Ordered ONE (07:18)
[2019-08-29] MEDS ORDERED: ROCURONIUM BROMIDE 50 MG/5 ML VIAL As Ordered ONE (07:39)
[2019-08-29] MEDS ORDERED: ePHEDrine SULFATE 25 MG/5 ML(5MG/ML) SYRINGE As Ordered ONE (07:53)
[2019-08-29] MEDS ORDERED: PHENYLephrine HCL 500 MCG/5 ML (100MCG/ML) SYRINGE (J2370) As Ordered ONE (07:56)
[2019-08-29] MEDS ORDERED: dexameTHASONE 4 MG/ML 1ML VIAL (J1100) As Ordered ONE (08:02)
[2019-08-29] MEDS ORDERED: NEOSTIGMINE 10 MG/10 ML VIAL (J2710) As Ordered ONE (08:17)
[2019-08-29] MEDS ORDERED: ONDANSETRON 4MG/2ML VIAL (J2405) As Ordered ONE (08:17)
[2019-08-29] MEDS ORDERED: MORPHINE 10 MG/ML 1ML VIAL (J2270) As Ordered ONE (08:17)
[2019-08-29] MEDS ORDERED: GLYCOPYRROLATE INJ 0.2 MG/ML 2 ML VIAL As Ordered ONE (08:17)
[2019-08-29] MEDS ORDERED: ACETAMINOPHEN 1000MG 100ML IV BTL (OFIRMEV) (J0131 PER 10MG) As Ordered ONE (08:23)
[2019-08-29] MEDS: fentaNYL 100 MCG/2 ML INJECTION (J3010) IV PRN ×4 (10:34→10:49)
[2019-08-29] MEDS ORDERED: LR 1,000 ML IV SCH ×2 (11:00→11:15)
[2019-08-29] MEDS ORDERED: oxyCODONE 5MG TAB PO PRN ×2 (11:00→11:15)
[2019-08-29] MEDS ORDERED: ONDANSETRON 4MG/2ML VIAL (J2405) IV PRN ×2 (11:00→11:15)
--- NOTE | 2019-08-29 11:14 | REP ---
Clinical: Status post arthroplasty. Technique: AP and cross-table lateral views. Findings: The patient is status post right hip replacement with normal positioning and appearance to the femoral and acetabular components. Overlying postsurgical changes appreciated. Impression: Satisfactory right hip replacement radiographs. Electronically Signed by Dom Hooker MD 08/29/2019 11:05 A
[2019-08-29] MEDS ORDERED: ACETAMINOPHEN TAB 650MG DOSE (2X325MG) PO PRN ×2 (11:15→11:30)
[2019-08-29] MEDS ORDERED: D5W/LR 1,000 ML IV SCH (11:15)
[2019-08-29] MEDS ORDERED: fentaNYL 100 MCG/2 ML INJECTION (J3010) IV PRN (11:15)
[2019-08-29] MEDS ORDERED: PILL CUTTER 1 EACH XX PRN (11:15)
[2019-08-29] MEDS ORDERED: PROMETHAZINE 25 MG TAB PO PRN (11:15)
[2019-08-29] MEDS ORDERED: FLEET ENEMA PR PRN (11:30)
[2019-08-29] MEDS ORDERED: HYDROMORPHONE HCL 0.5 MG/ 0.5 ML SYRINGE (J1170 PER 1) IV PRN ×2 (11:45)
--- NOTE | 2019-08-29 12:38 | CR.PDOC ---
General Date of Consultation: Aug 29, 2019 Referring Provider: Chano Garibay MD Attending Physician: PENNY CORTEZ MD Consultation REASON FOR CONSULTATION/CHIEF COMPLAINT: Postop medical management. HISTORY OF PRESENT ILLNESS: This is a 74 years old, [place], white male with past medical history of hypertension, hyperlipidemia, GERD, BPH, had a right total hip replacement surgery done today and we will called in for medical management on the patient. Patient is clinically stable, status post right total hip surgery and offers no new complaints at this time except some pain at the surgical site, which has improved with the medication. Any complaints of chest p ain, shortness of breath, nausea, vomiting, abdominal pain, etc.. ALLERGIES: Please see below. HOME MEDICATIONS: Please see below. PAST MEDICAL HISTORY: , Hypertension, hyperlipidemia, GERD, BPH, multiple TIAs, left carotid artery disease PAST SURGICAL HISTORY: Bilateral inguinal hernia repair, tonsillectomy, right shoulder surgery, neuroma removal many schedule removal, right knee cyst removal from left shoulder and calcium deposit removed from his left testicle, status post left carotid endarterectomy FAMILY HISTORY: Family history is noncontributory SOCIAL HISTORY: Patient smokes 5-10 cigarettes per day. Drinks alcohol occasionally. Denies any drugs are Marital status and/or living arrangements: , , lives with at home REVIEW OF SYSTEMS: CONSTITUTIONAL: , No headache, fever, pain. HEENT: . No ENT or eye pain. Also mention. CARDIOVASCULAR: . No chest pain or palpitations. RESPIRATORY: No cough or shortness of breath. GENITOURINARY: no Dysuria or frequency. MUSCULOSKELETAL: no muscular spasm or strain]. GASTROINTESTINAL: [, No nausea, vomiting or diarrhea. SKIN: No rash or eczema. NEUROLOGICAL: . No focal weakness or sensory loss. PSYCHIATRIC: No anxiety or depression. ENDOCRINE: , No diabetes or thyroid. HEMATOLOGIC/LYMPHATIC: No anemia or leukemia. ALLERGIC/IMMUNOLOGIC: No allergies. PHYSICAL EXAMINATION: VITAL SIGNS: Please see below. GENERAL APPEARANCE: Within normal limits. HEENT: PERRLA. Extraocular muscles intact. RESPIRATORY: Clear to A&P. CARDIOVASCULAR: S1, S2, regular. ABDOMEN: , Soft, nontender, bowel sounds present. EXTREMITIES: No clubbing, cyanosis, edema, tenderness at the right hip on palpation. NEUROLOGICAL: . No focal motor sensory or cranial nerve deficit. PSYCHIATRIC: Anxiety or depression noted. LABORATORY DATA: CBC, CMP has been ordered. Reports pending ASSESSMENT/PLAN: #1. Hypertension: Blood pressure is under well control. Continue valsartan and amlodipine Will monitor BP, regularly on daily basis CBC and CMP ordered #2. Hyperlipidemia: Patient is not on any statin, will request fasting lipid profile #3. BPH: Continue Proscar #4. GERD: Continue pantoprazole #5. History of carotid artery disease status post left carotid endarterectomy with multiple TIAs Continue aspirin and Plavix as per home dosage #6. Is status post right total hip surgery, postoperative day #1 Physical therapy, DVT prophylaxis and pain management as per orthopedic Possible DC to subacute rehabilitation facility once considered stable by orthopedics Vital Signs/I&O Vital Signs Date Time Temp Pulse Resp B/P (MAP) Pulse Ox O2 Delivery O2 Flow Rate FiO2 08/29/19 11:31 2.0 08/29/19 11:15 97 50 16 105/60 (75) 99 Nasal Cannula Allergies Coded Allergies: No Known Allergies (Unverified , 08/14/19) Home Medications Scheduled Amlodipine Besylate (Amlodipine Besylate) 5 Mg Tablet, 5 MG PO DAILY, (Reported) Aspirin (Aspir 81) 81 Mg Tablet.dr, 81 MG PO DAILY, #30 (Reported) Clopidogrel Bisulfate (Plavix) 75 Mg Tablet, 75 MG PO DAILY, (Reported) Diclofenac Sodium (Diclofenac Sodium) 75 Mg Tablet.dr, 75 MG PO BID, #30 (Reported) Finasteride (Proscar) 5 Mg Tablet, 5 MG PO QAM, (Reported) Gabapentin (Gabapentin) 300 Mg Capsule, 300 MG PO Q8H for 5 Days, #15 (Reported) Pantoprazole Sodium (Pantoprazole Sodium) 20 Mg Tablet.dr, 20 MG PO DAILY, (Reported) Valsartan (Valsartan) 80 Mg Tablet, 80 MG PO DAILY, (Reported) PENNY CORTEZ MD Aug 29, 2019 12:38
[2019-08-29] MEDS: ceFAZolin SOD 2 GM in IV 1 EA IV SCH ×2 (15:45→23:08)
[2019-08-29] MEDS: GABAPENTIN 300 MG CAP PO SCH ×2 (15:46→20:32)
[2019-08-29] MEDS: amLODIPine 5 MG TAB PO SCH (20:32)
[2019-08-30] VITALS (7 sets, daily range): BP systolic 92–144; BP diastolic 53–78
[2019-08-30] MEDS: PERCOCET 5MG/325MG TAB PO PRN ×4 (03:18→18:08)
[2019-08-30 06:43] LABS: BASO # 0.1 10^3/uL (0.0-0.2); BASO % 0.4 % (0.0-1.0); EOS % 0.3 % (0.0-3.0); HEMATOCRIT 31.9 % (42.0-52.0); HEMOGLOBIN 10.4 g/dl (13.5-17.5); LYMPH # 2.8 10^3/uL (1.5-5.0); LYMPH % 19.9 % (24.0-44.0); MEAN CORPUSCULAR HEMOGLOBIN 31.4 pg (27.0-33.0); MEAN CORPUSCULAR HGB CONC 32.6 g/dl (32.0-36.5); MEAN CORPUSCULAR VOLUME 96.4 fl (80.0-96.0); MONO # 1.9 10^3/uL (0.0-0.8); MONO % 13.7 % (0.0-5.0); NEUTROPHILS % 65.2 % (36.0-66.0); PLATELET COUNT, AUTOMATED 162 10^3/uL (150-450); RED BLOOD COUNT 3.31 10^6/uL (4.30-6.10); WHITE BLOOD COUNT 13.9 10^3/uL (4.0-10.0)
[2019-08-30 07:02] LABS: INR 1.25; PROTHROMBIN TIME 15.4 SECONDS (11.8-14.0)
[2019-08-30 07:04] LABS: ALBUMIN 2.8 GM/DL (3.2-5.2); ALT/SGPT 17 U/L (12-78); BILIRUBIN,TOTAL 0.5 MG/DL (0.2-1.0); BLOOD UREA NITROGEN 23 MG/DL (7-18); CALCIUM LEVEL 8.2 MG/DL (8.8-10.2); CARBON DIOXIDE LEVEL 25 MEQ/L (21-32); CHLORIDE LEVEL 105 MEQ/L (98-107); CHOLESTEROL LEVEL 102 MG/DL (<200); CREATININE FOR GFR 0.85 MG/DL (0.70-1.30); GLOMERULAR FILTRATION RATE > 60.0 (>42); GLUCOSE, FASTING 129 MG/DL (70-100); HDL CHOLESTEROL 34 MG/DL (>40); LDL CHOLESTEROL 53 MG/DL (<100); NON-HDL-C 68 MG/DL; POTASSIUM SERUM 3.9 MEQ/L (3.5-5.1); SODIUM LEVEL 136 MEQ/L (136-145); TOTAL PROTEIN 5.8 GM/DL (6.4-8.2); TRIGLYCERIDES LEVEL 77 MG/DL (<150)
[2019-08-30] MEDS ORDERED: PERC5TAB12 PO (07:22)
[2019-08-30] MEDS: MOM 30ML SUSPENSION UDC PO SCH (08:39)
[2019-08-30] MEDS: METAMUCIL (PSYLLIUM) PACKET PO SCH (08:40)
[2019-08-30] MEDS: PANTOPRAZOLE 40MG TAB (PROTONIX) PO SCH (08:40)
[2019-08-30] MEDS: MIRALAX *UNIT DOSE* 17GM PACKET PO SCH (08:40)
[2019-08-30] MEDS: GABAPENTIN 300 MG CAP PO SCH ×3 (08:42→20:16)
[2019-08-30] MEDS: ASPIRIN 81 MG ENTERIC TAB PO SCH (08:42)
[2019-08-30] MEDS: VALSARTAN 80 MG TAB (DIOVAN) PO SCH (08:42)
[2019-08-30] MEDS: FINASTERIDE 5 MG TAB PO SCH (08:42)
[2019-08-30] MEDS ORDERED: CelecoXIB 400 MG CAP PO ONE (10:00)
--- NOTE | 2019-08-30 11:14 | IPNPDOC ---
Subjective Date Seen The patient was seen on 08/30/19. Subjective Chief Complaint/HPI Patient complaining of pain at the right hip and awaiting physical therapy to be started today General: Denies: ROS Unobtainable, Chills, Night Sweats, Fatigue, Malaise, Normal Appetite, Other Symptoms Constitutional: Denies: Chills, Fever, Malaise, Night Sweats, Weakness, Fatigue, Weight Loss, Lethargy, Other Eyes: Denies: Pain, Vision change, Conjunctivae inflammation, Eyelid inflammation, Redness, Other ENT: Denies: Head Aches, Ear Pain, Dysphagia, Sinus Congestion, Post Nasal Drip, Sore Throat, Epistaxis, Other Symptoms Skin: Denies: Rash, Lesions, Jaundice, Bruising, Itching, Dry, Breakdown, Nail Changes, Other Pulmonary: Denies: Dyspnea, Cough, Pleuritic Chest Pain, Other Symptoms Cardiovascular: Denies: Chest Pain, Palpitations, Orthopnea, Paroxysmal Noc. Dyspnea, Edema, Lt Headedness, Other Symptoms Gastrointestinal: Denies: Nausea, Vomiting, Abdominal Pain, Diarrhea, Constipation, Melena, Hematochezia, Other Symptoms Musculoskeletal: Reports: Other Symptoms Neurological: Denies: Weakness, Numbness, Incoordination, Change in speech, Confusion, Seizures, Other Symptoms Objective Physical Examination General Exam: Positive: Alert, Cooperative Neck Exam: Positive: Supple Chest Exam: Positive: Clear to auscultation, Normal air movement Heart Exam: Positive: Rate Normal, Normal S1 Abdomen Exam: Positive: Normal bowel sounds, Soft Extremity Exam: Positive: Other (, right hip pain) Skin Exam: Positive: Nl turgor and temperature Neuro Exam: Positive: Strength at 5/5 X4 ext, Sensation Intact Assessment /Plan Problems (1) Hypertension Status: Chronic Problem Text: Under well control Continue home meds (2) Carotid arterial disease Status: Chronic Problem Text: Continue home meds (3) Hyperlipemia Status: Chronic Problem Text: Continue home meds (4) S/P total hip arthroplasty Status: Acute Problem Text: Patient awaiting physical therapy Pain management and DVT prophylaxis as per orthopedics Plan/VTE VTE Prophylaxis Ordered?: Yes VS, I&O, 24H, Fishbone Vital Signs/I&O Vital Signs Date Time Temp Pulse Resp B/P (MAP) Pulse Ox O2 Delivery O2 Flow Rate FiO2 08/30/19 10:00 98.6 88 20 105/75 (85) 94 Room Air 08/30/19 05:55 2.0 I&O- Last 24 Hours up to 6 AM 08/30/19 06:00 Intake Total 4730 ml Output Total 550 ml Balance 4180 ml Laboratory Data 24H LABS Laboratory Tests 2 08/30/19 06:15: Immature Granulocyte % (Auto) 0.5, Neutrophils (%) (Auto) 65.2, Lymphocytes (%) (Auto) 19.9L, Monocytes (%) (Auto) 13.7H, Eosinophils (%) (Auto) 0.3, Basophils (%) (Auto) 0.4, Neutrophils # (Auto) 9.0H, Lymphocytes # (Auto) 2.8, Monocytes # (Auto) 1.9H, Eosinophils # (Auto) 0.0, Basophils # (Auto) 0.1, Nucleated Red Blood Cells % (auto) 0.0, Prothrombin Time 15.4H, Prothromb Time International Ratio 1.25, Anion Gap 6L, Glomerular Filtration Rate > 60.0, Calcium Level 8.2L, Total Bilirubin 0.5, Aspartate Amino Transf (AST/SGOT) 20, Alanine Aminotransferase (ALT/SGPT) 17, Alkaline Phosphatase 80, Total Protein 5.8L, Albumin 2.8L, Albumin/Globulin Ratio 0.93L, Triglycerides Level 77, Total Bhumi sterol 102, LDL Cholesterol 53, Non-HDL Cholesterol (LDL + VLDL) 68, Total HDL Cholesterol 34L, Cholesterol/HDL Ratio 3.000 CBC/BMP Laboratory Tests 08/30/19 06:15 PENNY CORTEZ MD Aug 30, 2019 11:14
--- NOTE | 2019-08-30 12:20 | RO ---
DATE OF PROCEDURE: 08/29/2019 PREOPERATIVE DIAGNOSIS: Right hip osteoarthritis. POSTOPERATIVE DIAGNOSIS: Right hip osteoarthritis. INTRAOPERATIVE FINDINGS: Include progression of right hip degenerative change in femoral head collapse. PROCEDURE PERFORMED: Right total hip replacement. SURGEON: Dr. Garibay TRIM CREW SUPERVISOR: PRIYANKA Schmidt ANESTHESIA: General. Estimated blood loss was less than 400, replaced with crystalloid, no complications. COMPONENTS USED: Include DePuy [place] system size 5 femoral component, plus 8.5 neck length, 36 mm femoral head stainless steel, 36 mm AltrX liner, a 54 mm acetabular cup and a pair of 15 mm x 5 mm acetabular screws, apex hole eliminator. INDICATIONS: Progressive discomfort in the right hip, radiographic evidence of advanced arthritic change. Consent reviewed in detail including a montez discussion of pathology involved procedure proposed, alternatives including doing nothing and risks including but not limited to pain, failure, infection, bleeding, blood loss, dislocation, need for more surgery and other problems. The patient agreed to proceed. OPERATIVE COURSE: Identified in holding area. Site side verified. Brought to operating room. The patient had, had general anesthesia in the past and declined the spinal anesthesia, so general anesthesia was administered. He was positioned in the lateral decubitus position on the [place] frame for exposure of the right hip with a modified Hardinge approach. Once I and the mineral resources inspector were comfortable with the patient's positioning, he was then sterilely prepped and draped in the usual fashion. Next, we utilized the sterile arthroplasty suits. I stood on the patient's posterior, Mr. Holman stood on the patient's anterior in the capacity of conventions assistant. Next, the incision was outlined with a marking pen based on the greater trochanter for a modified Hardinge approach. The incision was approximately 15 cm long, infiltrated with 0.25% Marcaine with epinephrine, made with a #10 blade knife, developed down through skin and subcuticular tissues to the lateral fascia, which was exposed. The lateral fascia was opened longitudinally with a Garvey scissor proximally and distally. Abductor mechanism was identified. Split was created in the anterior one-third of the abductor mechanism. I put a tag stitch on the anterior one-third of the abductor mechanism and I released the abductor mechanism from the anterior portion of the greater trochanter at its anterior aspect. I split the joint capsule and dissected along the femoral neck, split the acetabular labrum using the Bovie cautery. Next, Mr. Holman assisted with the Meyerding retractors. We split the vastus lateralis and released the capsule so that the lesser trochanter could be palpated. Next, I applied bone hook and Mr. Holman manipulated the hip to help with dislocation. The patient had already significantly lateralized his hip. A trochanteric tract retractor was applied. Next, the femoral head was significantly dysplastic quite a bit worse than it had been on plain films consistent with possible collapse of an avascular process. Next, canal opening reamer was utilized. Canal lateralizing reamer was utilized. Canal finding reamer was utilized. Conical reamers through a size 5 were utilized. Next, femoral neck cut temperature plate was installed. I made the femoral neck cut using an oscillating saw and removed the femoral head. Lesser trochanter was palpated. Next, rasps were utilized through a size 5, which fit appropriately. Next, removed rasp. Instilled tranexamic acid (TXA) solution in femoral canal. Placed the anterior and posterior retractors for the acetabulum. The acetabulum had been significantly worn at its superior aspect. I removed acetabular labrum and capsular tissue. There is significant medial osteophytes. I did utilize hemispherical reamers to ream the acetabulum to the floor of the acetabulum beginning at a size 47 and working through a size 50. We then reamed through a size 53 further extending the acetabulum. I medialized the floor of the acetabulum because there had been some compromise of the lip of the acetabulum. Next, I was able to place a 54 trial. This was tamped into place, and the 54 trial seemed to fit appropriately and was in the floor of the acetabulum. Because, however of the wear of the acetabular lip I did elect to place acetabular screws. I selected the non trial 54 acetabular component. I used the targeting device. I irrigated with pulse lavage and then, I implanted the non trial 54 mm acetabular shell. I placed torsional stress and radial stress across the shell. It fit securely. I then removed the targeting device and placed the apex hole eliminator. I did drill in the posterior superior aspect two screw holes. Measured for at least 15 mm and placed two 15 mm x 5 mm acetabular screws because the acetabulum was appreciated be shallow. These seemed to fit appropriately. Irrigation accomplished. Non trial 36 mm acetabular neutral liner installed, tamped into place nylon impactor. Next, attention turned back to the femoral side. I did trial off of the 5 broach. 8.5 fit appropriately. It was stable with good soft tissue tension. I removed these trial components. Non trial femoral stem was installed after irrigation. Non trial femoral head was installed after irrigation. It was tamped into place with a nylon impactor. The hip was reduced again, again placed through a range of motion by Mr. Holman and I verified that the components were fitting appropriately and not impinging. Next, once this was accomplished, pulse lavage was accomplished. I utilized Exparel for local anesthetic around the fascial tissues, capsular tissues and subcuticular tissues a total of about 40 mL of the mixture. Next, capsular tissues were reapproximated with interrupted #1 and #0 stitch. Abductor mechanism was reapproximated using interrupted #1 as well as #0 stitch including to the cuff of tissue on the greater trochanter consistent with the Hardinge approach. Vastus lateralis reapproximated with a running #1 stitch. Next, lateral fascia was reapproximated with interrupted stitch and running Stratafix. Next, Leo fascia and deep dermis were reapproximated with interrupted #2-0 and #3-0 stitch. Prineo dressing was applied. The patient was then able to be moved to the prone position, moved to the hospital bed and moved to the recovery room in good condition. Mr. Holman participated in the entirety case in the capacity of conventions assistant.
[2019-08-30] MEDS: amLODIPine 5 MG TAB PO SCH (20:16)
[2019-08-30] MEDS: CYCLOBENZAPRINE 10 MG TAB PO PRN (20:16)
[2019-08-30] MEDS ORDERED: CLOPIDOGREL 75 MG TAB PO SCH (21:00)
[2019-08-31] MEDS: CYCLOBENZAPRINE 10 MG TAB PO PRN (05:02)
[2019-08-31] MEDS: PERCOCET 5MG/325MG TAB PO PRN ×2 (05:03→11:44)
[2019-08-31 05:35] VITALS: BP 117/65
--- NOTE | 2019-08-31 09:18 | IPNPDOC ---
Subjective Date Seen The patient was seen on 08/31/19. Subjective Chief Complaint/HPI Patient is much better, had physical therapy done this morning. Still has some pain in right hip with surgical site General: Denies: ROS Unobtainable, Chills, Night Sweats, Fatigue, Malaise, Normal Appetite, Other Symptoms Pulmonary: Denies: Dyspnea, Cough, Pleuritic Chest Pain, Other Symptoms Cardiovascular: Denies: Chest Pain, Palpitations, Orthopnea, Paroxysmal Noc. Dyspnea, Edema, Lt Headedness, Other Symptoms Gastrointestinal: Denies: Nausea, Vomiting, Abdominal Pain, Diarrhea, Constipation, Melena, Hematochezia, Other Symptoms Hematologic: Denies: Bruising, Bleeding Excessively, Petecchia, Purpura, Enlarged Lymph Nodes, Other Hematologic Musculoskeletal: Denies: Neck Pain, Back Pain, Shoulder Pain, Arm Pain, Hand Pain, Leg Pain, Foot Pain, Joint Pain, Muscle Pain, Spasms, Other Symptoms Neurological: Denies: Weakness, Numbness, Incoordination, Change in speech, Confusion, Seizures, Other Symptoms Objective Physical Examination General Exam: Positive: Alert, Cooperative Neck Exam: Positive: Supple Chest Exam: Positive: Clear to auscultation, Normal air movement Heart Exam: Positive: Rate Normal, Normal S1 Abdomen Exam: Positive: Normal bowel sounds, Soft Extremity Exam: Positive: Other (, right hip pain) Skin Exam: Positive: Nl turgor and temperature Neuro Exam: Positive: Strength at 5/5 X4 ext, Sensation Intact Assessment /Plan Problems (1) Hypertension Status: Chronic Problem Text: Under well control Continue home meds (2) Carotid arterial disease Status: Chronic Problem Text: Continue home meds (3) Hyperlipemia Status: Chronic Problem Text: Continue home meds (4) S/P total hip arthroplasty Status: Acute Problem Text: Physical therapy started today Hospital discharge home with home PT once cleared by PT Pain management and DVT prophylaxis as per orthopedics Plan/VTE VTE Prophylaxis Ordered?: Yes VS, I&O, 24H, Fishbone Vital Signs/I&O Vital Signs Date Time Temp Pulse Resp B/P (MAP) Pulse Ox O2 Delivery O2 Flow Rate FiO2 08/31/19 05:35 98.8 81 18 117/65 (82) 92 Room Air 08/30/19 08:40 2.0 I&O- Last 24 Hours up to 6 AM 08/31/19 06:00 Intake Total 1950 ml Output Total 0 ml Balance 1950 ml PENNY CORTEZ MD Aug 31, 2019 09:18
[2019-08-31 10:00] VITALS: BP 105/61
[2019-08-31] MEDS: ASPIRIN 81 MG ENTERIC TAB PO SCH (10:06)
[2019-08-31] MEDS: FINASTERIDE 5 MG TAB PO SCH (10:06)
[2019-08-31 10:07] VITALS: BP 120/79
[2019-08-31] MEDS: GABAPENTIN 300 MG CAP PO SCH (10:07)
[2019-08-31] MEDS: PANTOPRAZOLE 40MG TAB (PROTONIX) PO SCH (10:07)
[2019-08-31] MEDS: VALSARTAN 80 MG TAB (DIOVAN) PO SCH (10:07)
[2019-08-31] MEDS: MIRALAX *UNIT DOSE* 17GM PACKET PO SCH (10:08)
[2019-08-31] MEDS: MOM 30ML SUSPENSION UDC PO SCH (10:08)
[2019-08-31] MEDS: METAMUCIL (PSYLLIUM) PACKET PO SCH (10:08)
== END 2019-08-31 13:30 | disposition home or self-care (01) | DRG 470 ==
LOC: M OR 05:37 → M MS5PR 11:25
PROVIDERS: ADMIT Orthopaedic Surgery; ATTEND Orthopaedic Surgery
PROC: 0SR902Z Replacement of Right Hip Joint with Metal on Polyethylene Synthetic Substitute, Open Approach (ICD-10-PCS; principal; 2019-08-29 07:30)
DX: M16.11 Unilateral primary osteoarthritis, right hip (principal); I10 Essential (primary) hypertension; E78.5 Hyperlipidemia, unspecified; K21.9 Gastro-esophageal reflux disease without esophagitis; N40.0 Benign prostatic hyperplasia without lower urinary tract symptoms; F17.210 Nicotine dependence, cigarettes, uncomplicated; Z79.82 Long term (current) use of aspirin; Z79.899 Other long term (current) drug therapy; Z86.73 Personal history of transient ischemic attack (TIA), and cerebral infarction without residual deficits

== ENCOUNTER → 2019-12-18 | Outpatient (CLI) | payer MEDICARE, OTHER ==
[~2019-12-18] MED LIST changes: +PERC5TAB12 PO
--- NOTE | 2019-12-18 15:52 | REP ---
Duplex carotid sonography: History: Occlusion and stenosis. Left carotid artery. Comparison study: July 02, 2019. The patient is status post left carotid endarterectomy July 18, 2019. Findings: Antegrade flow is observed in both vertebral arteries. Right carotid: There is mixed plaquing in the distal CCA on the right. Moderate mixed plaquing is seen in the bulb, proximal ICA and proximal ECA on the right side. Color flow and spectral Doppler interrogation are unremarkable on the right. Velocities are unchanged. Velocity chart right carotid: CCA PSV 78 cm/s ICA PSV 69 cm/s ICA EDV 23 cm/s ECA PSV 115 cm/s ICA/CCA ratio normal 1.0. Impression: Less than 50% category stenosis in the right ICA. Doppler velocities have not increased since the prior study on the right side. Left carotid: Left common carotid artery shows mixed plaquing. Color flow and spectral Doppler interrogation remain unremarkable on the left. Velocity chart left carotid: CCA PSV 105 cm/s ICA PSV 88 cm/s ICA EDV 27 cm/s ECA PSV 107 cm/s ICA/CCA ratio normal 0.84. Impression: Less than 50% category narrowing. Velocities have not increased significantly on the left since the prior study. Electronically Signed by Bogdan Freire MD 12/18/2019 05:06 P
== END ==
LOC: M RAD 13:17
PROVIDERS: ATTEND Nurse Practitioner Adult Health
DX: I65.23 Occlusion and stenosis of bilateral carotid arteries (principal)

== ENCOUNTER → 2022-04-24 | Outpatient (CLI) | payer MEDICARE, OTHER ==
[~2022-04-24] MED LIST changes: +AMLO1TAB24 PO; -AMLO5TAB6 PO; -ASPI81TA85 PO; +ASPI81TA86 PO; +GABA-282 PO; -GABA-843 PO; +OMEP40CA4 PO; -OMEP40CA97 PO; -PANT20TA2 PO; +PANT20TA6 PO
== END ==
LOC: M RAD 15:38
PROVIDERS: ATTEND Nurse Practitioner Family
DX: I72.0 Aneurysm of carotid artery (principal); I65.23 Occlusion and stenosis of bilateral carotid arteries; R06.02 Shortness of breath; S32.010A Wedge compression fracture of first lumbar vertebra, initial encounter for closed fracture

== ENCOUNTER → 2022-04-28 | Outpatient (CLI) | payer MEDICARE, OTHER | LOC: M SOG 08:35 | PROVIDERS: ATTEND Orthopaedic Surgery Adult Reconstructive Orthopaedic Surgery | DX: M25.562 Pain in left knee (principal) ==

== ENCOUNTER → 2022-05-02 | Outpatient (CLI) | payer MEDICARE, OTHER | LOC: M PLAIMG 09:01 | PROVIDERS: ATTEND Nurse Practitioner Family | DX: M25.562 Pain in left knee (principal) ==

== ENCOUNTER → 2022-05-04 | Outpatient (CLI) | payer MEDICARE, OTHER ==
[~2022-05-04] MED LIST changes: +ISOVUE-370 76% 100ML VIAL As Ordered ONE
== END ==
LOC: M RAD 09:29
PROVIDERS: ATTEND Nurse Practitioner Family
DX: R91.8 Other nonspecific abnormal finding of lung field (principal)
CPT/HCPCS: 71275; Q9967

== ENCOUNTER → 2022-06-26 | Outpatient (CLI) | payer MEDICARE, OTHER ==
[~2022-06-26] MED LIST changes: -ISOVUE-370 76% 100ML VIAL As Ordered ONE
== END ==
LOC: M WHC 09:06
PROVIDERS: ATTEND Surgery Vascular Surgery
DX: I71.4 Abdominal aortic aneurysm, without rupture (principal)

== ENCOUNTER → 2022-06-26 | Outpatient (CLI) | payer MEDICARE, OTHER | LOC: M PLAIMG 08:39 | PROVIDERS: ATTEND Surgery Vascular Surgery | DX: I67.1 Cerebral aneurysm, nonruptured (principal) ==

== ENCOUNTER → 2022-10-06 | Outpatient (CLI) | payer MEDICARE, OTHER ==
[~2022-10-06] MED LIST changes: +CLOP75TA99 PO; -PLAV1TAB2 PO
== END ==
LOC: M CARPUL 12:44
PROVIDERS: ATTEND Internal Medicine Pulmonary Disease
DX: R06.00 Dyspnea, unspecified (principal)

== ENCOUNTER → 2023-04-24 | Outpatient (CLI) | payer MEDICARE, OTHER ==
[~2023-04-24] MED LIST changes: +ALBU2.5V10 INH; +BUDE10.7 INH
== END ==
LOC: M RAD 12:21
PROVIDERS: ATTEND Orthopaedic Surgery
DX: Z01.818 Encounter for other preprocedural examination (principal); M17.12 Unilateral primary osteoarthritis, left knee

== ENCOUNTER → 2023-04-24 | Outpatient (CLI) | payer MEDICARE, OTHER | LOC: M RAD 12:24 | DX: Z01.818 Encounter for other preprocedural examination (principal) ==

== ENCOUNTER 2023-05-07 06:08 | Observation (INO) | payer MEDICARE, OTHER ==
[~2023-05-07] VITALS: Ht 172.7 cm; Wt 81.4 kg
[~2023-05-07 06:08] MED LIST changes: +FINA-48 PO; -PROS5TAB PO; +ROPIVA 100MG/KETOR 15MG/EPINEPHRINE 0.3MG IN NS 50ML SYRINGE PA ONE
[2023-05-07] MEDS ORDERED: LR 1,000 ML IV SCH ×3 (06:20→10:40)
[2023-05-07] MEDS ORDERED: SUGAMMADEX SODIUM 500 MG/5 ML VIAL (BRIDION) As Ordered ONE (06:56)
[2023-05-07] MEDS ORDERED: LIDOCAINE 2% 100MG/5ML SDV (FOR ANES.) As Ordered ONE (06:56)
[2023-05-07] MEDS ORDERED: ROCURONIUM BROMIDE 50MG/5ML VIAL As Ordered ONE ×2 (06:56→09:51)
[2023-05-07] MEDS ORDERED: propofoL 200 MG/20 ML VIAL As Ordered ONE (06:56)
[2023-05-07] MEDS ORDERED: ONDANSETRON 4MG 2ML VIAL As Ordered ONE (06:57)
[2023-05-07] MEDS ORDERED: MIDAZOLAM INJ 2MG/2ML VIAL As Ordered ONE (07:02)
[2023-05-07] MEDS ORDERED: fentaNYL 250 MCG/5 ML INJECTION As Ordered ONE (07:02)
[2023-05-07] MEDS ORDERED: ceFAZolin SOD 2 GM in IV 1 EA IV ONE (07:10)
[2023-05-07] MEDS ORDERED: PANT40TA29 PO (07:10)
[2023-05-07] MEDS ORDERED: ASPI-226 PO (07:10)
[2023-05-07] MEDS ORDERED: HOME MED LIST COMPLETE! XX SCH (07:15)
[2023-05-07] MEDS ORDERED: TRANEXAMIC ACID 100 MG/ML 10ML VIAL As Ordered ONE ×2 (07:21→10:09)
[2023-05-07] MEDS ORDERED: LIDOCAINE 1% SDV 5ML VIAL PN ONE (07:30)
[2023-05-07] MEDS ORDERED: dexAMETHasone 10MG/1ML VIAL PRES.FREE PN ONE (07:30)
[2023-05-07] MEDS ORDERED: fentaNYL 100 MCG/2 ML INJECTION IV PRN (07:30)
[2023-05-07] MEDS ORDERED: ROPIvacaine 0.5% 30ML VIAL PN ONE ×2 (07:30→07:35)
[2023-05-07] MEDS ORDERED: MIDAZOLAM INJ 2MG/2ML VIAL IV PRN (07:30)
[2023-05-07] MEDS ORDERED: ACETAMINOPHEN 1000MG 100ML IV BAG As Ordered ONE (08:19)
[2023-05-07] MEDS ORDERED: ePHEDrine SULFATE 25 MG/5 ML(5MG/ML) SYRINGE As Ordered ONE (08:22)
[2023-05-07] MEDS ORDERED: VANCOMYCIN 1000MG/20ML VIAL As Ordered ONE (10:12)
[2023-05-07] MEDS ORDERED: oxyCODONE 5MG TAB PO PRN ×2 (10:25→10:40)
[2023-05-07] MEDS ORDERED: ONDANSETRON 4MG 2ML VIAL IV PRN ×2 (10:25→10:40)
[2023-05-07] MEDS ORDERED: SENNA 8.6 MG TAB (SENOKOT) PO PRN (10:40)
[2023-05-07] MEDS: fentaNYL 100 MCG/2 ML INJECTION IV PRN ×4 (10:44→11:00)
[2023-05-07] MEDS: HYDROMORPHONE HCL 0.5 MG/ 0.5 ML SYRINGE IV PRN ×2 (11:11→11:18)
[2023-05-07 14:45] VITALS: BP 140/76; TEMP 97.9; O2SAT 92
[2023-05-07] MEDS: VALSARTAN 80 MG TAB (DIOVAN) PO SCH (14:52)
[2023-05-07] MEDS: ACETAMINOPHEN TAB 650MG DOSE (2X325MG) PO SCH ×3 (14:52→23:57)
[2023-05-07 15:15] VITALS: BP 139/74; TEMP 98.2; O2SAT 94
[2023-05-07 16:15] VITALS: BP 140/77; TEMP 97.4; O2SAT 95
[2023-05-07] MEDS: ALBUTEROL SULFATE 2.5MG/0.5ML INH NEB SOLN INH SCH ×2 (16:16→21:49)
[2023-05-07 17:15] VITALS: BP 137/72; TEMP 98.1; O2SAT 96
[2023-05-07] MEDS: GABAPENTIN 300 MG CAP PO SCH ×2 (17:34→20:03)
[2023-05-07] MEDS: ceFAZolin SOD 2 GM in IV 1 EA IV SCH ×2 (17:34→23:57)
[2023-05-07] MEDS: DOCUSATE SODIUM 100MG CAPSULE PO SCH (20:03)
[2023-05-07 21:31] VITALS: BP 112/56; TEMP 98; O2SAT 92
[2023-05-08] MEDS: oxyCODONE 5MG TAB PO PRN ×2 (00:12→05:37)
[2023-05-08 01:43] VITALS: BP 126/69; TEMP 97.9; O2SAT 91
[2023-05-08] MEDS: ACETAMINOPHEN TAB 650MG DOSE (2X325MG) PO SCH ×2 (05:35→11:49)
[2023-05-08 06:24] LABS: HEMATOCRIT 37.5 % (42.0-52.0); HEMOGLOBIN 12.5 g/dl (13.5-17.5); MEAN CORPUSCULAR HEMOGLOBIN 31.7 pg (27.0-33.0); MEAN CORPUSCULAR HGB CONC 33.3 g/dl (32.0-36.5); MEAN CORPUSCULAR VOLUME 95.2 fl (80.0-96.0); PLATELET COUNT, AUTOMATED 183 10^3/uL (150-450); RED BLOOD COUNT 3.94 10^6/uL (4.30-6.10); WHITE BLOOD COUNT 14.7 10^3/uL (4.0-10.0)
[2023-05-08 06:33] LABS: INR 1.12; PROTHROMBIN TIME 14.6 SECONDS (12.5-14.5)
[2023-05-08 06:45] VITALS: BP 102/55; TEMP 97; O2SAT 92
[2023-05-08 06:49] LABS: ALBUMIN 3.4 G/DL (3.2-5.2); ALKALINE PHOSPHATASE 71 U/L (46-116); ALT/SGPT 19 U/L (7.0-40); AST/SGOT 11 U/L (<34); BILIRUBIN,TOTAL 0.7 MG/DL (0.3-1.2); BLOOD UREA NITROGEN 24 MG/DL (9-23); CALCIUM LEVEL 8.9 MG/DL (8.3-10.6); CARBON DIOXIDE LEVEL 27 MMOL/L (20-31); CHLORIDE LEVEL 105 MMOL/L (98-107); CREATININE FOR GFR 0.98 MG/DL (0.70-1.30); GLOMERULAR FILTRATION RATE > 60.0 (>42); GLUCOSE, FASTING 110 MG/DL (74-106); PHOSPHORUS LEVEL 3.5 MG/DL (2.4-5.1); POTASSIUM SERUM 4.2 MMOL/L (3.5-5.1); SODIUM LEVEL 139 MMOL/L (136-145); TOTAL PROTEIN 6.2 G/DL (5.7-8.2)
[2023-05-08] MEDS: ALBUTEROL SULFATE 2.5MG/0.5ML INH NEB SOLN INH SCH (07:24)
[2023-05-08 09:00] VITALS: BP 106/55
[2023-05-08] MEDS ORDERED: amLODIPine 5 MG TAB PO SCH (09:00)
[2023-05-08] MEDS ORDERED: FINASTERIDE 5MG TAB PO SCH (09:00)
[2023-05-08] MEDS ORDERED: ASCORBIC ACID 500 MG TAB PO SCH (09:00)
[2023-05-08] MEDS ORDERED: PANTOPRAZOLE 40MG TAB (PROTONIX) PO SCH (09:00)
[2023-05-08] MEDS: VALSARTAN 80 MG TAB (DIOVAN) PO SCH (09:00)
[2023-05-08] MEDS ORDERED: ASPIRIN 81MG ENTERIC TABLET PO SCH (09:00)
[2023-05-08] MEDS ORDERED: FERROUS SULFATE 325MG TAB PO SCH (09:00)
[2023-05-08] MEDS: DOCUSATE SODIUM 100MG CAPSULE PO SCH (09:21)
[2023-05-08] MEDS: GABAPENTIN 300 MG CAP PO SCH (09:21)
[2023-05-08] MEDS ORDERED: OXYC1TAB23 PO (10:57)
[2023-05-08] MEDS ORDERED: XARE10TA PO (13:35)
[2023-05-08] MEDS ORDERED: RIVAROXABAN 10MG TAB (XARELTO) PO SCH (18:00)
[2023-05-22] MEDS ORDERED: ASPIRIN 81MG ENTERIC TABLET PO SCH (09:00)
== END 2023-05-08 13:50 | disposition home or self-care (01) ==
LOC: M SDC 06:08 → M RR INP 06:09 → M MS5PR 14:35
PROVIDERS: ADMIT Orthopaedic Surgery; ATTEND Orthopaedic Surgery
DX: M17.12 Unilateral primary osteoarthritis, left knee (principal); I10 Essential (primary) hypertension; I73.9 Peripheral vascular disease, unspecified; K21.9 Gastro-esophageal reflux disease without esophagitis; M48.07 Spinal stenosis, lumbosacral region; I67.1 Cerebral aneurysm, nonruptured; Z86.73 Personal history of transient ischemic attack (TIA), and cerebral infarction without residual deficits; J44.9 Chronic obstructive pulmonary disease, unspecified; N40.0 Benign prostatic hyperplasia without lower urinary tract symptoms; Z87.891 Personal history of nicotine dependence; Z79.899 Other long term (current) drug therapy; Z79.51 Long term (current) use of inhaled steroids; Z79.82 Long term (current) use of aspirin
CPT/HCPCS: 27447; 36415; 64450; 73560; 80053; 80069; 85027; 85610; 87635; 88304; 88311; 94640; 96374; 96376; 97116; 97161; 97165; 97530; C1776; G0378; J0131; J0690; J1100; J1170; J2250; J2405; J3010

== ENCOUNTER → 2023-07-04 | Outpatient (CLI) | payer MEDICARE, OTHER ==
[~2023-07-04] MED LIST changes: +ASPI-226 PO; +OXYC1TAB23 PO; +PANT40TA29 PO; -ROPIVA 100MG/KETOR 15MG/EPINEPHRINE 0.3MG IN NS 50ML SYRINGE PA ONE; +XARE10TA PO
== END ==
LOC: M SOG 07:53
PROVIDERS: ATTEND Orthopaedic Surgery
DX: Z96.652 Presence of left artificial knee joint (principal)

== ENCOUNTER → 2023-08-14 | Outpatient (CLI) | payer MEDICARE, OTHER | LOC: M RAD 09:08 | PROVIDERS: ATTEND Surgery Vascular Surgery | DX: I71.43 Infrarenal abdominal aortic aneurysm, without rupture (principal) ==

== ENCOUNTER → 2023-09-28 | Outpatient (CLI) | payer MEDICARE, OTHER ==
[2023-09-28 15:21] LABS: HEMOGLOBIN A1c 5.5 % (4.0-6.0)
== END ==
LOC: M RAD 13:10
PROVIDERS: ATTEND Registered Nurse
DX: M47.892 Other spondylosis, cervical region (principal); R73.03 Prediabetes

== ENCOUNTER → 2023-10-10 | Outpatient (CLI) | payer MEDICARE, OTHER | LOC: M SOG 07:56 | PROVIDERS: ATTEND Orthopaedic Surgery | DX: Z96.652 Presence of left artificial knee joint (principal) ==

== ENCOUNTER → 2023-10-31 | Outpatient (CLI) | payer MEDICARE, OTHER | LOC: M SOG 13:25 | PROVIDERS: ATTEND Orthopaedic Surgery | DX: Z96.652 Presence of left artificial knee joint (principal) ==

== ENCOUNTER → 2023-11-08 | Outpatient (CLI) | payer MEDICARE, OTHER | LOC: M SOG 08:25 | PROVIDERS: ATTEND Orthopaedic Surgery | DX: M25.569 Pain in unspecified knee (principal) ==

== ENCOUNTER → 2024-01-02 | Outpatient (CLI) | payer MEDICARE, OTHER | LOC: M SOG 07:55 | PROVIDERS: ATTEND Orthopaedic Surgery | DX: Z96.652 Presence of left artificial knee joint (principal) ==

== ENCOUNTER → 2024-04-03 | Outpatient (CLI) | payer MEDICARE, OTHER ==
[~2024-04-03] MED LIST changes: -ESOM0.1C PO; +ESOM20CA2 PO
== END ==
LOC: M SOG 09:09
PROVIDERS: ATTEND Orthopaedic Surgery
DX: Z96.652 Presence of left artificial knee joint (principal)

== ENCOUNTER → 2024-04-07 | Outpatient (CLI) | payer MEDICARE, OTHER | LOC: M RAD 08:57 | PROVIDERS: ATTEND Internal Medicine Pulmonary Disease | DX: Z87.891 Personal history of nicotine dependence (principal); F17.200 Nicotine dependence, unspecified, uncomplicated ==

== ENCOUNTER → 2024-08-05 | Outpatient (CLI) | payer MEDICARE, OTHER ==
[~2024-08-05] MED LIST changes: +GABA-1172 PO; -GABA-282 PO
== END ==
LOC: M EKG 13:25
PROVIDERS: ATTEND Registered Nurse
DX: Z01.818 Encounter for other preprocedural examination (principal)

== ENCOUNTER 2024-08-18 08:48 | Day surgery (SDC) | payer MEDICARE, OTHER ==
[~2024-08-18] VITALS: Ht 177.8 cm; Wt 80.9 kg
[~2024-08-18 08:48] MED LIST changes: +LR 1,000 ML IV SCH
[2024-08-18] MEDS ORDERED: fentaNYL 100 MCG/2 ML INJECTION As Ordered ONE (10:03)
[2024-08-18] MEDS: PHENYLEPHRINE 2.5% OPHTH SOL 2ML OD SCH (10:48)
[2024-08-18] MEDS: ATROPINE SULFATE 1% OPHTH SOLN 2ML BTL OD SCH (10:48)
[2024-08-18] MEDS: TETRACAINE 0.5% OPHTH SOLN 4ML OD SCH (10:48)
[2024-08-18] MEDS: FLURBIPROFEN 0.03% OPHTH SOLN 2.5 ML OD SCH (10:48)
[2024-08-18] MEDS: LIDOCAINE 1% SDV 5ML VIAL As Ordered ONE (11:51)
[2024-08-18] MEDS: CEFUROXIME 1MG/0.1ML INTRACAMERAL INJ As Ordered ONE (11:59)
[2024-08-18 12:10] VITALS: BP 134/83; TEMP 97.7; O2SAT 96
== END 2024-08-18 12:30 | disposition home or self-care (01) ==
LOC: M SDC 08:48
PROVIDERS: ATTEND Ophthalmology
DX: H25.11 Age-related nuclear cataract, right eye (principal); J44.9 Chronic obstructive pulmonary disease, unspecified; I10 Essential (primary) hypertension; I71.40 Abdominal aortic aneurysm, without rupture, unspecified; Z79.899 Other long term (current) drug therapy; Z79.52 Long term (current) use of systemic steroids; N40.0 Benign prostatic hyperplasia without lower urinary tract symptoms; Z86.73 Personal history of transient ischemic attack (TIA), and cerebral infarction without residual deficits; K21.9 Gastro-esophageal reflux disease without esophagitis; Z90.89 Acquired absence of other organs; Z87.891 Personal history of nicotine dependence
CPT/HCPCS: 66984; J0697; J3010; V2632

== ENCOUNTER 2024-10-13 09:33 | Day surgery (SDC) | payer MEDICARE, OTHER ==
[~2024-10-13] VITALS: Ht 177.8 cm; Wt 80.7 kg
[~2024-10-13 09:33] MED LIST changes: +FINA5TAB2 PO
[2024-10-13] MEDS: CYCLOPENTOLATE 1% OPHTH SOLN 2ML BTL OS SCH (10:56)
[2024-10-13] MEDS: TETRACAINE 0.5% OPHTH SOLN 4ML OS SCH (10:56)
[2024-10-13] MEDS: FLURBIPROFEN 0.03% OPHTH SOLN 2.5 ML OS SCH (10:56)
[2024-10-13] MEDS: PHENYLEPHRINE 2.5% OPHTH SOL 2ML OS SCH (10:56)
[2024-10-13] MEDS ORDERED: fentaNYL 100 MCG/2 ML INJECTION As Ordered ONE (11:34)
[2024-10-13] MEDS ORDERED: MIDAZOLAM INJ 2MG/2ML VIAL As Ordered ONE (11:34)
[2024-10-13] MEDS: LIDOCAINE 1% SDV 5ML VIAL As Ordered ONE (12:12)
[2024-10-13] MEDS: CEFUROXIME 1MG/0.1ML INTRACAMERAL INJ As Ordered ONE (12:22)
[2024-10-13 12:30] VITALS: BP 120/64; TEMP 96.8; O2SAT 96
== END 2024-10-13 12:50 | disposition home or self-care (01) ==
LOC: M SDC 09:33
PROVIDERS: ATTEND Ophthalmology
DX: H25.9 Unspecified age-related cataract (principal); I71.40 Abdominal aortic aneurysm, without rupture, unspecified; Z79.899 Other long term (current) drug therapy; Z87.891 Personal history of nicotine dependence; Z98.41 Cataract extraction status, right eye
CPT/HCPCS: 66984; J0697; J2250; J3010; V2632

== ENCOUNTER → 2024-11-06 | Outpatient (CLI) | payer MEDICARE, OTHER ==
[~2024-11-06] MED LIST changes: -LR 1,000 ML IV SCH
== END ==
LOC: M RAD 08:26
PROVIDERS: ATTEND Registered Nurse
DX: I65.29 Occlusion and stenosis of unspecified carotid artery (principal)

== ENCOUNTER → 2025-01-05 | Outpatient (CLI) | payer MEDICARE, OTHER | LOC: M SOG 08:01 | PROVIDERS: ATTEND Orthopaedic Surgery | DX: Z96.652 Presence of left artificial knee joint (principal) ==

== ENCOUNTER → 2025-07-14 | Outpatient (CLI) | payer MEDICARE, OTHER | LOC: M SOG 07:26 | PROVIDERS: ATTEND Orthopaedic Surgery | DX: M25.551 Pain in right hip (principal); Z96.652 Presence of left artificial knee joint; S82.002D Unspecified fracture of left patella, subsequent encounter for closed fracture with routine healing ==